=== PATIENT | male | born 1985 | race Hispanic/Latino ===

== ENCOUNTER 2018-07-11 22:47 | Emergency (ER) | payer SELFPAY ==
[2018-07-12 00:14] LABS: MONO NEGATIVE CONTROL ZONE White (Negative) (White); MONO POSITIVE CONTROL Pink Line (Positive) (PINK/RED); Mononucleosis NEGATIVE (NEGATIVE)
[2018-07-12] MEDS ORDERED: Dexamethasone 10 MG/ML VIAL ONE ×2 (00:21→00:48)
[2018-07-12] MEDS ORDERED: Hydrocodone-Acetamin 15 ML UDCUP PO SCH (00:30)
[2018-07-12] MEDS ORDERED: Hydrocodone-Acetamin 15 ML UDCUP ONE (00:55)
== END 2018-07-12 01:08 | disposition home or self-care (01) ==
LOC: ERS 22:47
DX: J03.90 Acute tonsillitis, unspecified (principal)
CPT/HCPCS: 36415; 86308; 87081; 87430; 96372; J1100

== ENCOUNTER 2019-01-27 16:34 | Emergency (ER) | payer SELFPAY ==
[2019-01-27] MEDS ORDERED: Ketorolac Tromethamine 30 MG/ML VIAL ONE (18:34)
== END 2019-01-27 19:39 | disposition home or self-care (01) ==
LOC: ERS 16:34
DX: M77.9 Enthesopathy, unspecified (principal); F17.210 Nicotine dependence, cigarettes, uncomplicated
CPT/HCPCS: 99283; J1885